=== PATIENT | female | born 1970 | race Caucasian/White ===

== ENCOUNTER → 2020-08-10 | Outpatient (CLI) | payer OTHER ==
--- NOTE | 2020-08-10 12:18 | KCIC ---
Examination: MRI of the right elbow without contrast HISTORY: History of lateral elbow pain COMPARISON: None available TECHNIQUE: Multiplanar, multisequence MR imaging of the right elbow was performed without contrast FINDINGS: The attachment of the triceps tendon to the olecranon process grossly appears intact. The attachment of the common flexor tendon to the medial epicondyle grossly appears intact. There is increased T2 signal identified within and about the common extensor tendon attachment to the lateral epicondyle likely partial tear or lateral epicondylitis. Small elbow joint effusion is identified. The ulnar collateral ligament, radial collateral ligament, lateral ulnar collateral ligament appears intact. The distal attachment of the biceps and brachialis tendons grossly appears intact. The ulnar nerve in the cubital tunnel grossly appears unremarkable. Mild degenerative changes identified in the elbow joint. IMPRESSION: 1. Increased T2 signal identified within and about the common extensor tendon at its lateral epicondylar attachment could be partial tear or lateral epicondylitis. Electronically signed by: Jatinder Olivarez MD (08/10/2020 12:15 PM) [id number]
== END | disposition home or self-care (01) ==
LOC: KCIC MRI 10:37
PROVIDERS: ATTEND Physician Assistant
DX: M77.11 Lateral epicondylitis, right elbow (principal); M19.021 Primary osteoarthritis, right elbow; M25.421 Effusion, right elbow
CPT/HCPCS: 73221